=== PATIENT | male | born 1960 | race Caucasian/White ===

== ENCOUNTER 2023-12-28 12:11 | Observation (INO) ==
[2023-12-28] MEDS: DUONEB NEB STA (12:18)
--- NOTE | 2023-12-28 12:28 | ED.PDOC ---
General ED Provider: Dr. LEE VARGAS MD Chief Complaint: Shortness of Air Stated Complaint: Shortness of breath with a history of COPD Time Seen by Provider: 12/28/23 12:16 Mode of Arrival: Walk-In Information Source: Patient Exam Limitations: No limitations Primary Care Provider: From out of state - patient's PCP is in [place]. Nursing and Triage Documentation Reviewed and Agree: Yes Does Patient Take Opioids?: No Is Patient Opioid Naive?: No What is Opioid Naive?: *Opioid Naive implies the patient is not already taking opioids or not chronically receiving opioids on a daily basis. *PRN dosing is not "usually" associated with tolerance. *Patients are at higher risk of over-sedation and aspiration. Is Patient Opioid Tolerant?: No What is Opioid Tolerant?: *Opioid Tolerance implies less than the expected response to an opioid. *Acquired tolerance is defined by the patient taking 60mg of oral morphine daily (or equianalgesic dose of another opioid) for 1 week or more. *Often associated with chronic pain. *May take more than usual dose to achieve desired pain control. Respiratory Complaint Exam Respiratory Complaint/Exam Onset/Duration: 4 days Symptoms Are: Still present Timing: Intermittent Initial Severity: Moderate Current Severity: Moderate Location: Chest (Shortness of breath secondary to COPD exacerbation) Character: Reports Dry cough Aggravating: Reports None Alleviating: Reports None Associated Signs and Symptoms: Reports Dyspnea and Wheezing; Denies Fever, Chills, Chest pain, Pleuritic chest pain, Hemoptysis, Dizziness, Calf pain, Calf swelling, Edema, URI, Nasal congestion, Hoarseness, Sinus discomfort, Vomiting, Sore throat, Decreased oral intake, Increased thirst, Increased appetite or Increased urination Related History: Reports Similar episode (Patient has a history of COPD exacerbation) History of Healthcare-Acquired Pneumonia: No Related Surgical History: Reports None Pulmonary Embolism Risk Factors: None Cardiac Risk Factors: Reports Smoking Pseudomonas Risk Factors: Reports None Tuberculosis Risk Factors: Reports None Home Oxygen Use: No Current Antibiotic Use: No Respiratory Distress: Moderate Diminished Breath Sounds: Yes (Diminished breath sounds in the bibasilar lung shell.) Prolonged Respiration: Expiratory phase Sinus Tenderness: None Kussmaul Respirations: No Differential Diagnoses: Pneumonia and Other (COPD exacerbation) Review of Systems Review Of Systems Constitutional: Reports No symptoms Eyes: Reports No symptoms Ears, Nose, Mouth, Throat: Reports No symptoms Respiratory: Reports Cough and Shortness of Breath Cardiac: Reports No symptoms GI: Reports No symptoms : Reports No symptoms Musculoskeletal: Reports No symptoms Skin: Reports No symptoms Neurological: Reports No symptoms Endocrine: Reports No symptoms Hematologic/Lymphatic: Reports No symptoms All Other Systems: Reviewed and Negative Physical Exam Physical Exam Appearance: Reports Ill-appearing, No pain distress and Well-nourished Ill-appearing: Mild Pain Distress: None Eyes: Reports LEANNE, EOMI and Conjunctiva clear ENT: Reports Ears normal, Nose normal and Oropharynx normal Neck: Supple Respiratory: Reports Airway patent, Breath sounds diminished (Breath sounds diminished in the bibasilar lower lung shell.) and Wheezes (Wheezing heard throughout the entire lung shell anterior, posterior, and laterally.) Cardiovascular: Reports RRR, Pulses normal, No rub and No murmur GI/: Reports Soft, Nontender, No masses, Bowel sounds normal and No Organomegaly Musculoskeletal: Reports Normal strength, ROM intact, No edema and No calf tenderness Skin: Reports Warm, Dry and Normal color Neurological: Reports Sensation intact, Motor intact, Reflexes intact, Cranial nerves intact, Alert and Oriented Psychiatric: Reports Affect appropriate and Mood appropriate Interpretation EKG Interpretation EKG Interpretation By: ED Physician Time of EKG #1: 12:55 Rate: Normal Rhythm: Sinus Ectopy: None [place]: NL ST Segment: Normal Interpretation: EKG shows normal sinus rhythm with a rate of [address] elevations. Radiology Interpretation Radiology Interpretation By: ED Physician Radiology Results: No acute changes Exam Interpreted: CXR Xray Comments: Prominent right paratracheal lymph node. Course Course 12/28/23 12:28 12/28/23 12:28 Orders, Labs, Meds: Lab Review 12/28/23 12/28/23 12:28 12:42 WBC 10.11 RBC 5.18 Hgb 16.2 Hct 47.8 MCV 92.3 MCH 31.3 H MCHC 33.9 RDW Coeff of Siri 12.6 Plt Count 297 Immature Gran % (Auto) 0.3 Neut % (Auto) 58.1 Lymph % (Auto) 27.9 Kinney % (Auto) 6.9 Eos % (Auto) 6.0 Baso % (Auto) 0.8 Neut # (Auto) 5.9 Lymph # (Auto) 2.8 Kinney # (Auto) 0.7 Eos # (Auto) 0.6 Baso # (Auto) 0.1 Immature Gran # (Auto) 0.0 VBG pH 7.40 VBG pCO2 32 L VBG pO2 77 H VBG HCO3 19.8 L VBG O2 Saturation 95.2 H Sodium 136.3 Potassium 4.01 Chloride 108.4 H Carbon Dioxide 17.7 L Anion Gap 14.21 BUN 11.2 Creatinine 1.03 Estimated GFR (MDRD) 73.00 BUN/Creatinine Ratio 10.87 Glucose 147.0 H Lactic Acid 1.80 Calcium 8.87 Total Bilirubin 0.68 AST 44.5 ALT 29.1 Alkaline Phosphatase 74.2 Troponin I < 0.012 NT-Pro-B Natriuret Pep 46 Total Protein 7.22 Albumin 4.46 Globulin 2.76 Albumin/Globulin Ratio 1.61 Influ A Molecular Assay Negative by naat Influ B Molecular Assay Negative by naat SARS CoV-2 RNA Rapid MIGUEL Negative Orders Category Date Time Status EKG-(ED ONLY) Stat CARDIO 12/28/23 12:17 Completed EKG-(ED ONLY) Stat CARDIO 12/28/23 12:56 Stop Req NEBULIZER TREATMENT Stat CARDIO 12/28/23 12:18 Completed ED APPLY O2 .ONCE EMERGENCY 12/28/23 12:17 Active ED NETWORK SERVICES PROJECT MANAGER APPLIED .ONCE EMERGENCY 12/28/23 12:17 Active CBC W/ AUTO DIFF Stat LAB 12/28/23 12:28 Completed COMPREHENSIVE METABOLIC PANEL Stat LAB 12/28/23 12:28 Completed FLU A/B MOLECULAR Stat LAB 12/28/23 12:28 Completed LACTIC ACID Stat LAB 12/28/23 12:28 Completed NT-PROBNP(ED) Stat LAB 12/28/23 12:28 Completed SARS COV-2 RNA RAPID MIGUEL Stat LAB 12/28/23 12:28 Completed TROPONIN I Stat LAB 12/28/23 12:28 Completed VBG [VENOUS BLOOD GAS] Stat LAB 12/28/23 12:42 Completed Ipratropium/Albuterol Neb [Duoneb] Meds 12/28/23 12:16 Discontinued 3 ml NEB ONCE ONE Ipratropium/Albuterol Neb [Duoneb] Meds 12/28/23 12:16 Discontinued 3 ml NEB ONCE STA Methylprednisolone Sod Succ/Pf [Solu-Medrol 125 mg] Meds 12/28/23 12:16 Discontinued 125 mg IVP ONCE ONE CHEST, 1V AP ONLY Stat RADS 12/28/23 12:17 Taken Medications Discontinued Medications Generic Name Dose Route Start Last Admin Trade Name Sven PRN Reason Stop Dose Admin Albuterol/Ipratropium 3 ml 12/28/23 12:16 12/28/23 12:18 Ipratropium/Albuterol Vial.[facility] 12/28/23 12:17 3 ml ONCE STA Administration Albuterol/Ipratropium 3 ml 12/28/23 12:16 12/28/23 12:30 Ipratropium/Albuterol Vial.[facility] 12/28/23 12:17 3 ml ONCE ONE Administration Methylprednisolone Sodium Succinate 125 mg 12/28/23 12:16 12/28/23 12:34 Methylprednisolone Sod Succ/Pf 125 Mg/2 Ml Vial IVP 12/28/23 12:17 125 mg ONCE ONE Administration Vital Signs: Temp Pulse Resp BP Pulse Ox 12/28/23 12:14 98.7 F 91 20 142/89 H 94 L Discharge Plan Discharge Patient Disposition: ADMITTED INPATIENT Discharge Problem: Acute exacerbation of chronic obstructive pulmonary disease, Acute hypoxemic respiratory failure Did you review [place] CHIEF I DISPATCHER for ALL controlled substances?: Not Applicable ED Provider: LEE VARGAS Condition: Stable Physician Progress Note: Patient is a 63-year-old male that reported to the emergency department for shortness of breath. Patient states he has a history of COPD and has been in exacerbation before. Patient stated that he had the similar symptoms. Patient stated that he is from [place] and is here traveling. Patient stated that he is tried his albuterol inhaler with minimal relief. Patient stated that this is day 4 for the symptoms and he came to the emergency department because he does not want to get any worse. Patient also endorsed a dry cough for the past 4 days. Patient states that his PCP prescribed him an albuterol nebulized treatment and an albuterol inhaler for which she is tried both with minimal relief. Patient denies any fever or being around anybody that was sick. Patient denies any chest pain, nausea, vomiting, diarrhea, dizziness, syncope, loss consciousness, headache, sore throat, or any other acute symptoms not mentioned in the HPI. -Vital signs currently stable. Patient does have an O2 sat between 89 and 92% on room air. Will place patient on nasal cannula 2 L. -Will order a DuoNeb treatment x 2. -Will order IV methylprednisolone 125 mg. -Will order an EKG and a chest x-ray, and baseline labs. -Will order a VBG. -Patient's still has some wheezing diffusely in the lung shell after 2 DuoNeb treatments. However patient is moving air better in the lower lung shell after the 2 DuoNeb treatments. -CBC unremarkable. -CMP unremarkable. -EKG shows normal sinus rhythm with a rate of [address] elevations noted. -Spoke to the hospitalist Sung Hua at 1300 and discussed the patient's acute hypoxemic respiratory failure requiring 2 L nasal cannula to keep O2 sat above 94%. Also discussed with her the patient's COPD exacerbation diagnosis. She has agreed to admit the patient to the hospital for observation.
[2023-12-28] MEDS: DUONEB NEB ONE (12:30)
[2023-12-28] MEDS: SOLU-MEDROL 125 MG IVP ONE (12:34)
[2023-12-28 12:35] LABS: BASOPHILS # (AUTO) 0.1 K/uL (0-0.2); BASOPHILS % (AUTO) 0.8 % (0.0-3.0); EOSINOPHILS # (AUTO) 0.6 K/ul (0.0-0.7); HEMATOCRIT 47.8 % (42.0-52.0); HEMOGLOBIN 16.2 g/dl (14.0-18.0); IMMATURE GRANULOCYTE % (AUTO) 0.3 % (0.0-5.0); LYMPHOCYTES # (AUTO) 2.8 K/uL (0.60-3.4); LYMPHOCYTES % (AUTO) 27.9 (10.0-50.0); MEAN CORPUSCULAR HEMOGLOBIN 31.3 pg (27.0-31.0); MEAN CORPUSCULAR HGB CONC 33.9 (31.8-35.4); MEAN CORPUSCULAR VOLUME 92.3 fl (80.0-94.0); MONOCYTES # (AUTO) 0.7 K/uL (0.4-2.0); MONOCYTES % (AUTO) 6.9 (0-10); NEUTROPHILS # (AUTO) 5.9 K/ul (2.0-6.9); NEUTROPHILS % (AUTO) 58.1 % (42.2-75.2); PLATELET COUNT 297 10^3/uL (140-440); RDW COEFFICIENT OF VARIATION 12.6 % (11.6-14.8); RED BLOOD COUNT 5.18 10^6/ul (4.70-6.10); WHITE BLOOD COUNT 10.11 K/ul (4.2-10.2)
[2023-12-28 12:45] LABS: VBG HCO3 19.8 (22-26); VBG OXYGEN SATURATION 95.2 (60-80); VBG PH 7.4 (7.30-7.40)
[2023-12-28 12:48] LABS: ALANINE AMINOTRANSFERASE 29.1 U/L (0-50); ALBUMIN 4.46 g/dL (3.5-5.0); ALKALINE PHOSPHATASE 74.2 U/L (56-119); ASPARTATE AMINO TRANSFERASE 44.5 U/L (17-59); BILIRUBIN,TOTAL 0.68 mg/dL (0.2-1.3); BLOOD UREA NITROGEN 11.2 mg/dL (9-20); CALCIUM 8.87 mg/dL (8.4-10.2); CARBON DIOXIDE 17.7 mmol/L (22-30.0); CHLORIDE 108.4 mmol/L (98-107); CREATININE 1.03 mg/dL (0.60-1.10); POTASSIUM 4.01 mmol/L (3.5-5.1); SODIUM 136.3 mmol/L (134.5-145); TOTAL PROTEIN 7.22 g/dL (6.3-8.2)
[2023-12-28 12:53] LABS: MOLECULAR FLU A NEGATIVE BY NAAT (NEGATIVE); MOLECULAR FLU B NEGATIVE BY NAAT (NEGATIVE); SARS COV-2 RNA RAPID NAAT NEGATIVE (NEGATIVE)
[2023-12-28 13:00] LABS: TROPONIN I < 0.012 ng/ml (0.0000-0.120)
--- NOTE | 2023-12-28 13:09 | DI ---
EXAM: CHEST RADIOGRAPH (1 VIEW) TECHNIQUE: Frontal Chest Radiograph. HISTORY: Short of breath COMPARISON: None FINDINGS: Lines, Tubes, Devices: None Lungs and Pleura: The lungs are clear. There is a prominent right paratracheal lymph node or azygos node. Cardiomediastinum: Normal cardiomediastinal silhouette. No aortic calcifications. Bones/Soft Tissues: No acute osseous abnormality. No soft tissue abnormality. Upper Abdomen: Within normal limits. IMPRESSION: Prominent right paratracheal lymph node. Further characterization could be made with CT scan with co ntrast.
[2023-12-28] MEDS: ZITHROMAX 500 MG in SODIUM CHLORIDE 250 ML IV ONE (13:28)
--- NOTE | 2023-12-28 14:35 | PCM ---
Date of Service Date Seen by Provider: 12/28/23 Time Seen by Provider: 14:25 Admit Day/Time Admission Date: 12/28/23 Admission Time: 13:05 Reason for Admission Chief Complaint: ACUTE HYPOXIC RESPIRATORY FAILURE, COPD EXACERBATI Hospital Provider Hospital Provider: [facility], [facility] History of Present Illness History of Present Illness: 63 yo male presents to the ER with SOB. Patient is here from [place] visiting his daughter and has hx of COPD. Reports that he has been feeling more short of breath over the last week and has required his nebulizer machine and inhaler frequently since then. On arrival to the ER, O2 sat was dropping down into the upper 80s and 77% on VBG. 2 duonebs were administered in addition to steroids, rocephin, and azithromycin. Chest x-ray clear. Patient denies fever, chills, body aches, chest pain, N/V/D. Does report productive cough with clear sputum. Case Discussed With Case Discussed With: Patient's case was discussed with the ER Physicians, Dr. Kent. [facility] Medical History (Updated 12/28/23 @ 14:39 by [facility]) COPD (chronic obstructive pulmonary disease) J44.9 - Chronic obstructive pulmonary disease, unspecified (ICD-10) Allergies Allergies Allergy/AdvReac Type Severity Reaction Status Date / Time No Known Allergies Allergy Unverified 12/28/23 12:17 Current Medications Home Medications albuterol 90 mcg/actuation aerosol inhaler 90 mcg inhalation DAILY PRN wheezing 12/28/23 [History Confirmed 12/28/23 Last Taken Unknown] Home Albuterol Sulfate (Albuterol Sulfate 0.083% Vial.Neb) 2.5 mg NEB RTQ4H PRN PRN Reason: Wheezing Albuterol/Ipratropium (Ipratropium/Albuterol Vial.Neb) 3 ml NEB RTQ4H LIANA CEFTRIAXONE/D5W 1 GM PREMIX (Rocephin 1 Gm/50 Ml D5w) 1 gm in 50 mls @ 100 mls/hr IV DAILY LIANA Stop: 01/01/24 08:59 Azithromycin 500 mg/ Sodium (Chloride) 250 mls @ 250 mls/hr IV DAILY LIANA Stop: 01/01/24 08:59 Methylprednisolone Sodium Succinate (Methylprednisolone Sod Succ/Pf 40 Mg/Ml Vial) 40 mg IVP Q8HR LIANA Discontinued Medications Albuterol/Ipratropium (Ipratropium/Albuterol Vial.Neb) 3 ml NEB ONCE STA Stop: 12/28/23 12:17 Last Admin: 12/28/23 12:18 Dose: 3 ml Albuterol/Ipratropium (Ipratropium/Albuterol Vial.Neb) 3 ml NEB ONCE ONE Stop: 12/28/23 12:17 Last Admin: 12/28/23 12:30 Dose: 3 ml CEFTRIAXONE/D5W 1 GM PREMIX (Rocephin 1 Gm/50 Ml D5w) 1 gm in 50 mls @ 100 mls/hr IV DAILY LIANA Stop: 12/31/23 13:29 Azithromycin 500 mg/ Sodium (Chloride) 250 mls @ 250 mls/hr IV ONCE ONE Stop: 12/28/23 14:06 Last Admin: 12/28/23 13:28 Dose: 250 mls/hr CEFTRIAXONE/D5W 1 GM PREMIX (Rocephin 1 Gm/50 Ml D5w) 1 gm in 50 mls @ 100 mls/hr IV ONCE ONE Stop: 12/28/23 14:29 Methylprednisolone Sodium Succinate (Methylprednisolone Sod Succ/Pf 125 Mg/2 Ml Vial) 125 mg IVP ONCE ONE Stop: 12/28/23 12:17 Last Admin: 12/28/23 12:34 Dose: 125 mg Opioid Naive vs. Tolerant Does Patient Take Opioids?: No Is Patient Opioid Naive?: Yes What is Opioid Naive?: *Opioid Naive implies the patient is not already taking opioids or not chronically receiving opioids on a daily basis. *PRN dosing is not "usually" associated with tolerance. *Patients are at higher risk of over-sedation and aspiration. Is Patient Opioid Tolerant?: No What is Opioid Tolerant?: *Opioid Tolerance implies less than the expected response to an opioid. *Acquired tolerance is defined by the patient taking 60mg of oral morphine daily (or equianalgesic dose of another opioid) for 1 week or more. *Often associated with chronic pain. *May take more than usual dose to achieve desired pain control. Review of Systems Constitutional: Reports Fatigue Head: Reports Normocephalic Eyes: Reports No symptoms Ears: Reports No symptoms Nose: Reports No symptoms Mouth: Reports No symptoms Throat: Reports No symptoms Cardiovascular: Reports No symptoms Respiratory: Reports Cough (clear sputum) and Shortness of air Gastrointestinal: Reports No symptoms Genitourinary: Reports No Symptoms Musculoskeletal: Reports No symptoms Endocrine: Reports No symptoms Hematology: Reports No symptoms Immunology: Reports No symptoms Neurological: Reports No symptoms Psychiatric: Reports No symptoms Physical examination Most Recent Vital Signs: Most Recent Vital Signs Temperature 98.7 F 12/28/23 12:14 Temperature Source Temporal Artery Scan 12/28/23 12:14 Pulse Rate 91 12/28/23 12:14 Respiratory Rate 20 12/28/23 12:14 Blood Pressure 142/89 H 12/28/23 12:14 O2 Sat by Pulse Oximetry 94 L 12/28/23 12:14 Oxygen Flow Rate 2 12/28/23 13:25 Height 6 ft 2 in 12/28/23 12:14 Weight 209 lb 12/28/23 12:14 Appearance: Positive No Apparent Distress and Alert and Oriented x3 Skin: Positive Warm and Good Turgor HEENT: Positive Normocephalic and PERRLA Neck: Positive Supple and Midline Trachea Chest/Lungs: Positive Symmetrical With Equal Breath Sounds, Wheezes (insp and exp, throughout lung shell) and Other (diminished) Heart: Positive RRR and Pulses Normal GI/: Positive Soft, Nontender, Bowel Sounds Normal and No Distention Musculoskeletal: Positive Not Examined Neurological: Positive Sensation Intact, Motor intact, Alert, Oriented and Muscle Strength 5/5 in Upper and Lower Extremities Bilaterally Labs This Visit Labs This Visit: Labs This Visit 12/28/23 12/28/23 12:28 12:42 WBC 10.11 RBC 5.18 Hgb 16.2 Hct 47.8 MCV 92.3 MCH 31.3 H MCHC 33.9 RDW Coeff of Siri 12.6 Plt Count 297 Immature Gran % (Auto) 0.3 Neut % (Auto) 58.1 Lymph % (Auto) 27.9 Lucas % (Auto) 6.9 Eos % (Auto) 6.0 Baso % (Auto) 0.8 Neut # (Auto) 5.9 Lymph # (Auto) 2.8 Lucas # (Auto) 0.7 Eos # (Auto) 0.6 Baso # (Auto) 0.1 Immature Gran # (Auto) 0.0 VBG pH 7.40 VBG pCO2 32 L VBG pO2 77 H VBG HCO3 19.8 L VBG O2 Saturation 95.2 H Sodium 136.3 Potassium 4.01 Chloride 108.4 H Carbon Dioxide 17.7 L Anion Gap 14.21 BUN 11.2 Creatinine 1.03 Estimated GFR (MDRD) 73.00 BUN/Creatinine Ratio 10.87 Glucose 147.0 H Lactic Acid 1.80 Calcium 8.87 Total Bilirubin 0.68 AST 44.5 ALT 29.1 Alkaline Phosphatase 74.2 Troponin I < 0.012 NT-Pro-B Natriuret Pep 46 Total Protein 7.22 Albumin 4.46 Globulin 2.76 Albumin/Globulin Ratio 1.61 Influ A Molecular Assay Negative by naat Influ B Molecular Assay Negative by naat SARS CoV-2 RNA Rapid MIGUEL Negative Imaging Imaging: EXAM: CHEST RADIOGRAPH (1 VIEW) FINDINGS: Lines, Tubes, Devices: None Lungs and Pleura: The lungs are clear. There is a prominent right paratracheal lymph node or azygos node. Cardiomediastinum: Normal cardiomediastinal silhouette. No aortic calcifications. Bones/Soft Tissues: No acute osseous abnormality. No soft tissue abnormality. Upper Abdomen: Within normal limits. IMPRESSION: Prominent right paratracheal lymph node. Further characterization could be made with CT scan with contrast. Review Statement Review Statement: I have independently reviewed and interpreted the labs/EKGs/imaging that were ordered by the ER provider. I have reviewed all outside records that are available currently in our EMR including imaging/notes/labs from previous visits. Plan Plan: 1. Acute Hypoxic Respiratory Failure in setting of COPD Exacerbation - wean oxygen as tolerated, steroids, nebs Q4H and prn 2. COPD Exacerbation - azith and rocephin, steroids, nebs, rx for new inhaler and neb treatments needed upon dc 3. Right paratracheal lymph node - incidental findings, could be due to COPD exacerbation, will CT if needed clinically otherwise follow up outpatient with PCP to monitor DVT Prophylaxis: Ambulation Time Spent: Greater than 80 minutes spent with patient, 50% of the time spent with this patient was devoted to counseling and coordination of care. [facility] Plannin minutes spent discussing advance care planning. Smoking Cessation: 3-10 minutes spent discussing smoking cessation. Disposition: Admit to: Med/Surg Observation Discussed Plan of Care with Dr. Josefa Ibarra. Medications Medication Orders: Medications Ordered Category Date Time Status Albuterol Sulfate 0.083% Neb [Albuterol 0.083% Neb] Meds 12/28/23 13:45 Active 2.5 mg NEB RTQ4H PRN Azithromycin Inj [Zithromax] 500 mg Meds 12/29/23 09:00 Active 0.9 % Sodium Chloride [Sodium Chloride] 250 ml IV DAILY Ceftriaxone/D5w 1 gm Premix [Rocephin 1 gm/50 ml D5w] Meds 12/29/23 09:00 Active 1 gm in 50 ml IV DAILY Ipratropium/Albuterol Neb [Duoneb] Meds 12/28/23 16:00 Active 3 ml NEB RTQ4H Methylprednisolone Sod Succ/Pf [Solu-Medrol 40 mg] Meds 12/28/23 21:00 Active 40 mg IVP Q8HR
[2023-12-28 15:38] VITALS: BMI 26.7
[2023-12-28] MEDS: ROCEPHIN 1 GM/50 ML D5W 1 GM/50 ML BAG IV ONE (16:12)
[2023-12-28] MEDS: DUONEB NEB SCH (16:32)
[2023-12-28] MEDS: SOLU-MEDROL 40 MG IVP SCH (20:28)
[2023-12-28] MEDS: ROCEPHIN 1 GM/50 ML D5W 1 GM/50 ML BAG IV SCH (21:34)
[2023-12-29 05:21] LABS: BASOPHILS % (AUTO) 0.2 % (0.0-3.0); EOSINOPHILS % (AUTO) 0.1 % (0.0-7.0); HEMATOCRIT 48.8 % (42.0-52.0); HEMOGLOBIN 16.3 g/dl (14.0-18.0); IMMATURE GRANULOCYTE # (AUTO) 0.1 (0.0-1.0); IMMATURE GRANULOCYTE % (AUTO) 0.7 % (0.0-5.0); LYMPHOCYTES % (AUTO) 7.7 (10.0-50.0); MEAN CORPUSCULAR HEMOGLOBIN 30.9 pg (27.0-31.0); MEAN CORPUSCULAR HGB CONC 33.4 (31.8-35.4); MEAN CORPUSCULAR VOLUME 92.4 fl (80.0-94.0); MONOCYTES # (AUTO) 0.3 K/uL (0.4-2.0); MONOCYTES % (AUTO) 2.4 (0-10); NEUTROPHILS # (AUTO) 11.5 K/ul (2.0-6.9); NEUTROPHILS % (AUTO) 88.9 % (42.2-75.2); PLATELET COUNT 293 10^3/uL (140-440); RDW COEFFICIENT OF VARIATION 12.6 % (11.6-14.8); RED BLOOD COUNT 5.28 10^6/ul (4.70-6.10); WHITE BLOOD COUNT 12.92 K/ul (4.2-10.2)
[2023-12-29 05:31] LABS: ALANINE AMINOTRANSFERASE 25.9 U/L (0-50); ALBUMIN 4.26 g/dL (3.5-5.0); ALKALINE PHOSPHATASE 80.7 U/L (56-119); ASPARTATE AMINO TRANSFERASE 34.7 U/L (17-59); BILIRUBIN,TOTAL 0.33 mg/dL (0.2-1.3); BLOOD UREA NITROGEN 14.2 mg/dL (9-20); CALCIUM 9.03 mg/dL (8.4-10.2); CARBON DIOXIDE 23.3 mmol/L (22-30.0); CHLORIDE 109.1 mmol/L (98-107); CREATININE 0.93 mg/dL (0.60-1.10); GLUCOSE 160.3 mg/dL (74-106); POTASSIUM 4.7 mmol/L (3.5-5.1); SODIUM 138.2 mmol/L (134.5-145); TOTAL PROTEIN 7.01 g/dL (6.3-8.2)
[2023-12-29] MEDS: ALBUTEROL 0.083% NEB NEB PRN (08:02)
[2023-12-29] MEDS: ROCEPHIN 1 GM/50 ML D5W 1 GM/50 ML BAG IV SCH (09:00)
--- NOTE | 2023-12-29 09:43 | PCM.PROG ---
Date/Time Seen Date Seen by Provider: 12/29/23 Time Seen by Provider: 09:15 Provider Provider: CHI BROWN, [facility] Chief Complaint Chief Complaint: ACUTE HYPOXIC RESPIRATORY FAILURE, COPD EXACERBATI Subjective Subjective: States feels he is wheezing worse today. Having difficulties coughing up sputum. Requiring 4L of oxygen now. Sat staying around 93%. Objective Appearance: Positive No Apparent Distress, Alert and Oriented x3 and Ill- Appearing Chest/Lungs: Positive Symmetrical With Equal Breath Sounds and Wheezes (insp and exp throughout lung shell) Heart: Positive RRR and Pulses Normal GI/: Positive Soft, Nontender, Bowel Sounds Normal and No Distention Musculoskeletal: Positive Not Examined Neurological: Positive Sensation Intact, Motor intact, Alert, Oriented and Muscle Strength 5/5 in Upper and Lower Extremities Bilaterally Vital Signs Vital Signs: Vital Signs: Last 24 Hours 12/28/23 12:14 12/28/23 13:25 12/28/23 14:25 Temperature 98.7 F 98.2 F Temperature Source Temporal Artery Scan Oral Pulse Rate 91 78 Respiratory Rate 20 22 H Blood Pressure 142/89 H Blood Pressure Mean Blood Pressure Left Arm 153/98 Blood Pressure Location Blood Pressure Position Supine O2 Sat by Pulse Oximetry 94 L 95 Oxygen Delivery Method Nasal Cannula Oxygen Flow Rate 2 2 Height 6 ft 2 in 6 ft 2 in Weight 209 lb 208 lb 9.6 oz Telemetry Type Telemetry Monitoring Irregular Telemetry Rate (Approximate) Telemetry Heart Rate Telemetry SPO2 EKG DE Interval EKG QRS Interval Telemetry Strip Reading 12/28/23 14:25 12/28/23 14:48 12/28/23 15:00 Temperature Temperature Source Pulse Rate Respiratory Rate Blood Pressure Blood Pressure Mean Blood Pressure Left Arm Blood Pressure Location Blood Pressure Position O2 Sat by Pulse Oximetry Oxygen Delivery Method Nasal Cannula Nasal Cannula Oxygen Flow Rate 2 Height Weight Telemetry Type Remote Telemetry Telemetry Monitoring Started Irregular Telemetry Rate (Approximate) Telemetry Heart Rate 97 Telemetry SPO2 92 L EKG DE Interval 0.18 EKG QRS Interval 0.08 Telemetry Strip Reading NSR 12/28/23 16:00 12/28/23 17:00 12/28/23 17:52 Temperature Temperature Source Pulse Rate Respiratory Rate Blood Pressure Blood Pressure Mean Blood Pressure Left Arm Blood Pressure Location Blood Pressure Position O2 Sat by Pulse Oximetry Oxygen Delivery Method Nasal Cannula Nasal Cannula Nasal Cannula Oxygen Flow Rate Height Weight Telemetry Type Telemetry Monitoring Irregular Telemetry Rate (Approximate) Telemetry Heart Rate Telemetry SPO2 EKG DE Interval EKG QRS Interval Telemetry Strip Reading 12/28/23 17:53 12/28/23 19:00 12/28/23 19:00 Temperature 98.1 F Temperature Source Temporal Artery Scan Pulse Rate 94 Respiratory Rate 19 Blood Pressure 144/97 H Blood Pressure Mean 112 Blood Pressure Left Arm Blood Pressure Location Right Arm Blood Pressure Position Supine O2 Sat by Pulse Oximetry 91 L Oxygen Delivery Method Nasal Cannula Nasal Cannula Oxygen Flow Rate 2 Height Weight Telemetry Type Remote Telemetry Telemetry Monitoring Continues Irregular Telemetry Rate (Approximate) Telemetry Heart Rate 85 Telemetry SPO2 92 L EKG DE Interval 0.16 EKG QRS Interval 0.08 Telemetry Strip Reading NSR 12/28/23 19:39 12/28/23 19:49 12/28/23 21:00 Temperature Temperature Source Pulse Rate Respiratory Rate Blood Pressure Blood Pressure Mean Blood Pressure Left Arm Blood Pressure Location Blood Pressure Position O2 Sat by Pulse Oximetry Oxygen Delivery Method Nasal Cannula Nasal Cannula Nasal Cannula Oxygen Flow Rate 2 Height Weight Telemetry Type Telemetry Monitoring Irregular Telemetry Rate (Approximate) Telemetry Heart Rate Telemetry SPO2 EKG DE Interval EKG QRS Interval Telemetry Strip Reading 12/28/23 21:25 12/28/23 21:40 12/28/23 22:15 Temperature 97.3 F L Temperature Source Temporal Artery Scan Pulse Rate 83 Respiratory Rate 20 Blood Pressure 144/97 H Blood Pressure Mean 112 Blood Pressure Left Arm Blood Pressure Location Left Arm Blood Pressure Position Supine O2 Sat by Pulse Oximetry 94 L 93 L Oxygen Delivery Method Nasal Cannula Nasal Cannula Nasal Cannula Oxygen Flow Rate 2 2 Height Weight Telemetry Type Telemetry Monitoring Irregular Telemetry Rate (Approximate) Telemetry Heart Rate Telemetry SPO2 EKG DE Interval EKG QRS Interval Telemetry Strip Reading 12/28/23 23:00 12/29/23 00:00 12/29/23 01:00 Temperature Temperature Source Pulse Rate Respiratory Rate Blood Pressure Blood Pressure Mean Blood Pressure Left Arm Blood Pressure Location Blood Pressure Position O2 Sat by Pulse Oximetry Oxygen Delivery Method Nasal Cannula Nasal Cannula Nasal Cannula Oxygen Flow Rate Height Weight Telemetry Type Telemetry Monitoring Irregular Telemetry Rate (Approximate) Telemetry Heart Rate Telemetry SPO2 EKG DE Interval EKG QRS Interval Telemetry Strip Reading 12/29/23 01:00 12/29/23 02:00 12/29/23 03:00 Temperature Temperature Source Pulse Rate Respiratory Rate Blood Pressure Blood Pressure Mean Blood Pressure Left Arm Blood Pressure Location Blood Pressure Position O2 Sat by Pulse Oximetry Oxygen Delivery Method Nasal Cannula Nasal Cannula Oxygen Flow Rate Height Weight Telemetry Type Remote Telemetry Telemetry Monitoring Continues Irregular Telemetry Rate (Approximate) 65 Telemetry Heart Rate Telemetry SPO2 88 L EKG DE Interval 0.16 EKG QRS Interval 0.06 Telemetry Strip Reading NSR 12/29/23 04:00 12/29/23 05:00 12/29/23 05:20 Temperature Temperature Source Pulse Rate Respiratory Rate Blood Pressure Blood Pressure Mean Blood Pressure Left Arm Blood Pressure Location Blood Pressure Position O2 Sat by Pulse Oximetry 96 Oxygen Delivery Method Nasal Cannula Nasal Cannula Nasal Cannula Oxygen Flow Rate 4 Height Weight Telemetry Type Telemetry Monitoring Irregular Telemetry Rate (Approximate) Telemetry Heart Rate Telemetry SPO2 EKG DE Interval EKG QRS Interval Telemetry Strip Reading 12/29/23 05:38 12/29/23 06:00 12/29/23 07:00 Temperature 98.3 F Temperature Source Temporal Artery Scan Pulse Rate 74 Respiratory Rate 20 Blood Pressure 140/89 Blood Pressure Mean 106 Blood Pressure Left Arm Blood Pressure Location Left Arm Blood Pressure Position Supine O2 Sat by Pulse Oximetry 96 Oxygen Delivery Method Nasal Cannula Nasal Cannula Oxygen Flow Rate 4 Height Weight Telemetry Type Remote Telemetry Telemetry Monitoring Continues Irregular Telemetry Rate (Approximate) Telemetry Heart Rate 78 Telemetry SPO2 92 L EKG DE Interval 0.20 EKG QRS Interval 0.08 Telemetry Strip Reading SR 12/29/23 07:00 12/29/23 08:00 12/29/23 08:00 Temperature Temperature Source Pulse Rate Respiratory Rate Blood Pressure Blood Pressure Mean Blood Pressure Left Arm Blood Pressure Location Blood Pressure Position O2 Sat by Pulse Oximetry Oxygen Delivery Method Nasal Cannula Nasal Cannula Nasal Cannula Oxygen Flow Rate 2 Height Weight Telemetry Type Telemetry Monitoring Irregular Telemetry Rate (Approximate) Telemetry Heart Rate Telemetry SPO2 EKG DE Interval EKG QRS Interval Telemetry Strip Reading 12/29/23 08:34 Temperature Temperature Source Pulse Rate Respiratory Rate Blood Pressure Blood Pressure Mean Blood Pressure Left Arm Blood Pressure Location Blood Pressure Position O2 Sat by Pulse Oximetry Oxygen Delivery Method Nasal Cannula Oxygen Flow Rate Height Weight Telemetry Type Telemetry Monitoring Irregular Telemetry Rate (Approximate) Telemetry Heart Rate Telemetry SPO2 EKG DE Interval EKG QRS Interval Telemetry Strip Reading Lab Results Lab Results: Lab Results: Last 24 Hours 12/29/23 12/28/23 12/28/23 05:14 12:42 12:28 WBC 12.92 H 10.11 RBC 5.28 5.18 Hgb 16.3 16.2 Hct 48.8 47.8 MCV 92.4 92.3 MCH 30.9 31.3 H MCHC 33.4 33.9 RDW Coeff of Siri 12.6 12.6 Plt Count 293 297 Immature Gran % (Auto) 0.7 0.3 Neut % (Auto) 88.9 H 58.1 Lymph % (Auto) 7.7 L 27.9 Hall % (Auto) 2.4 6.9 Eos % (Auto) 0.1 6.0 Baso % (Auto) 0.2 0.8 Neut # (Auto) 11.5 H 5.9 Lymph # (Auto) 1.0 2.8 Hall # (Auto) 0.3 L 0.7 Eos # (Auto) 0.0 0.6 Baso # (Auto) 0.0 0.1 Immature Gran # (Auto) 0.1 0.0 VBG pH 7.40 VBG pCO2 32 L VBG pO2 77 H VBG HCO3 19.8 L VBG O2 Saturation 95.2 H Sodium 138.2 136.3 Potassium 4.70 4.01 Chloride 109.1 H 108.4 H Carbon Dioxide 23.3 17.7 L Anion Gap 10.50 14.21 BUN 14.2 11.2 Creatinine 0.93 1.03 Estimated GFR (MDRD) 83.00 73.00 BUN/Creatinine Ratio 15.26 10.87 Glucose 160.3 H 147.0 H Lactic Acid 1.80 Calcium 9.03 8.87 Total Bilirubin 0.33 0.68 AST 34.7 44.5 ALT 25.9 29.1 Alkaline Phosphatase 80.7 74.2 Troponin I < 0.012 NT-Pro-B Natriuret Pep 46 Total Protein 7.01 7.22 Albumin 4.26 4.46 Globulin 2.75 2.76 Albumin/Globulin Ratio 1.54 1.61 Influ A Molecular Assay Negative by naat Influ B Molecular Assay Negative by naat SARS CoV-2 RNA Rapid MIGUEL Negative Additional Comments Additional Comments: I have independently reviewed and interpreted the labs/EKGs/imaging ordered during this hospital stay. I have reviewed outside records that are available in our EMR that pertain to medical stay including imaging/notes/labs from previous visits. Active Medications Active Medications: Medications Generic Name Dose Route Start Last Admin Trade Name Freq PRN Reason Stop Dose Admin Albuterol Sulfate 2.5 mg 12/28/23 13:45 12/29/23 08:02 Albuterol Sulfate 0.083% Vial.Neb NEB 2.5 mg RTQ4H PRN Administration Wheezing Albuterol/Ipratropium 3 ml 12/28/23 16:00 12/29/23 05:21 Ipratropium/Albuterol Vial.Neb NEB 3 ml RTQ4H LIANA Administration CEFTRIAXONE/D5W 1 GM PREMIX 1 gm in 50 mls @ 100 mls/hr 12/29/23 09:00 Rocephin 1 Gm/50 Ml D5w IV 01/01/24 08:59 DAILY LIANA Azithromycin 500 mg/ Sodium 250 mls @ 250 mls/hr 12/29/23 09:00 Chloride IV 01/01/24 08:59 DAILY LIANA Methylprednisolone Sodium Succinate 40 mg 12/28/23 21:00 12/29/23 04:40 Methylprednisolone Sod Succ/Pf 40 Mg/Ml Vial IVP 40 mg Q8HR LIANA Administration Sodium Chloride 1 syr 12/28/23 21:00 12/29/23 04:41 0.9% Sodium Chloride 10 Ml Disp.Syrin IVF 1 syr Q8HR LIANA Administration Sodium Chloride 1 syr 12/28/23 17:12 0.9% Sodium Chloride 10 Ml Disp.Syrin IVF PRN PRN Maintain IV Patency Plan Plan: 1. Acute Hypoxic Respiratory Failure in setting of COPD Exacerbation - Worsening, up to 4L now, wean oxygen as tolerated, steroids, nebs Q4H and prn, checking chest CTA to r/o PE or other etiologies 2. COPD Exacerbation - azith and rocephin, steroids, nebs, rx for new inhaler and neb treatments needed upon dc 3. Right paratracheal lymph node - incidental findings, could be due to COPD exacerbation, CT chest today DVT Prophylaxis: Ambulation Review Statement Review Statement: I have personally discussed and reviewed the patient's visit/currently labs/imaging/decision making with Dr. Ibarra, my supervising attending. Greater that 50 minutes spent with patient, 50% of the time spent with this patient was devoted to counseling and coordination of care.
[2023-12-29] MEDS: ZITHROMAX 500 MG in SODIUM CHLORIDE 250 ML IV SCH (09:59)
--- NOTE | 2023-12-29 10:33 | CT ---
EXAM: CTA CHEST FOR PE HISTORY: Shortness of breath COMPARISON: Chest x-ray yesterday TECHNIQUE: CTA of the chest was performed from the lung apices to the upper abdomen after 100 ml of Omnipaque IV contrast was administered using PE protocol. 3-D imaging was also provided. FINDINGS: There is no filling defect in the pulmonary arteries to the level of the subsegmental pulm onary arteries. The heart is normal without signs of ventricular strain. The aorta demonstrates ath erosclerotic disease. Thyroid is unremarkable. The heart demonstrates normal appearance with no per icardial fluid. There are calcified mediastinal and hilar lymph nodes. There is no pneumothorax or effusion. Calcified granuloma in the right middle lobe is present. Ther e is no consolidation, nodule or mass. The airways are patent. Limited views of the soft tissues in the upper abdomen are unremarkable. There is degenerative disea se throughout the spine. IMPRESSION: 1. No pulmonary embolism. 2. Sequela of old granulomatous disease. All CT scans are performed using dose optimization techniques as appropriate to the performed exam an d include at least one of the following: Automated exposure control, adjustment of the mA and/or kV according t o size, and the use of iterative reconstruction technique.
[2023-12-29] MEDS: ARTIFICIAL TEARS OPTH SOL EACHEYE PRN (10:57)
[2023-12-29] MEDS: SPIRIVA IH SCH (12:33)
[2023-12-29] MEDS: PULMICORT 1 MG/2 ML NEB SCH (13:42)
[2023-12-30 05:33] LABS: ALANINE AMINOTRANSFERASE 27.5 U/L (0-50); ALBUMIN 4.05 g/dL (3.5-5.0); ALKALINE PHOSPHATASE 68.5 U/L (56-119); ASPARTATE AMINO TRANSFERASE 35.9 U/L (17-59); BILIRUBIN,TOTAL 0.32 mg/dL (0.2-1.3); CALCIUM 9.07 mg/dL (8.4-10.2); CARBON DIOXIDE 22.7 mmol/L (22-30.0); CHLORIDE 108.7 mmol/L (98-107); CREATININE 1.01 mg/dL (0.60-1.10); GLUCOSE 137.8 mg/dL (74-106); POTASSIUM 4.88 mmol/L (3.5-5.1); SODIUM 137.9 mmol/L (134.5-145); TOTAL PROTEIN 6.69 g/dL (6.3-8.2)
[2023-12-30 05:34] LABS: EOSINOPHILS % (AUTO) 0.1 % (0.0-7.0); HEMATOCRIT 48.1 % (42.0-52.0); HEMOGLOBIN 15.6 g/dl (14.0-18.0); IMMATURE GRANULOCYTE # (AUTO) 0.1 (0.0-1.0); IMMATURE GRANULOCYTE % (AUTO) 0.6 % (0.0-5.0); LYMPHOCYTES # (AUTO) 1.3 K/uL (0.60-3.4); LYMPHOCYTES % (AUTO) 5.7 (10.0-50.0); MEAN CORPUSCULAR HEMOGLOBIN 31.6 pg (27.0-31.0); MEAN CORPUSCULAR HGB CONC 32.4 (31.8-35.4); MONOCYTES # (AUTO) 0.8 K/uL (0.4-2.0); MONOCYTES % (AUTO) 3.5 (0-10); NEUTROPHILS # (AUTO) 19.8 K/ul (2.0-6.9); NEUTROPHILS % (AUTO) 90.1 % (42.2-75.2); PLATELET COUNT 300 10^3/uL (140-440); RDW COEFFICIENT OF VARIATION 13.1 % (11.6-14.8); RED BLOOD COUNT 4.94 10^6/ul (4.70-6.10)
[2023-12-30 05:38] LABS: WHITE BLOOD COUNT 22.05 K/ul (4.2-10.2)
[2023-12-30 05:39] LABS: MEAN CORPUSCULAR VOLUME 97.4 fl (80.0-94.0)
[2023-12-30 09:59] VITALS: BP 140/87; PULSE 94; RESP 18; TEMP 98.2
--- NOTE | 2023-12-30 10:13 | DCSUM ---
Admission Date Admission Date: 12/28/23 Discharge Date Discharge Date: 12/30/23 Admission Diagnosis Admission Diagnosis: 1. Acute Hypoxic Respiratory Failure in setting of COPD Exacerbation 2. COPD Exacerbation 3. Right paratracheal lymph node Discharge Diagnosis Discharge Diagnosis: 1. Acute Hypoxic Respiratory Failure in setting of COPD Exacerbation - Resolved 2. COPD Exacerbation - Improving 3. Right paratracheal lymph node - not seen on CTA, PCP to follow-up Hospital Provider Hospital Provider[facility]OWN[facility] Summary of History and Physical Summary of History and Physical: 63 yo male presents to the ER with SOB. Patient is here from [place] visiting his daughter and has hx of COPD. Reports that he has been feeling more short of breath over the last week and has required his nebulizer machine and inhaler frequently since then. On arrival to the ER, O2 sat was dropping down into the upper 80s and 77% on VBG. 2 duonebs were administered in addition to steroids, rocephin, and azithromycin. Chest x-ray clear. Patient denies fever, chills, body aches, chest pain, N/V/D. Does report productive cough with clear sputum. Hospital Course Subjective: Initially, patient was requiring 2L of oxygen. By AM yesterday, patient was requiring 4L and only maintaining O2 sat of 93%. CTA chest completed to r/o PE or other etiologies, which was negative for acute findings. Adjusted nebulizer treatment regimen and patient showed great improvements. He was able to be weaned off of oxygen completely this am. 3 step oximetry completed and patient did not qualify for need for home oxygen. He was given azithromycin and rocephin, steroids, and started on spiriva as well. Patient reports feeling much better today and feels he is moving air much better. Marked leukocytosis on CBC this am. Likely due to steroid use. No fever or active signs of infection noted. Discussed to follow-up with PCP when he returns home. Appearance: Pleasant, No Apparent Distress and Alert HEENT: MMM, Supple and No JVD CVS: No Murmur Abdomen: Soft, Non-Tender and No Distention Respiratory: Other (insp and expiratory wheezing throughout lung shell, good air movement) Extremities: No Edema Vital Signs: Most Recent Vital Signs Temperature 98.2 F 12/30/23 09:59 Temperature Source Temporal Artery Scan 12/30/23 09:59 Temperature Source Temporal Artery Scan 12/28/23 12:14 Pulse Rate 94 12/30/23 09:59 Respiratory Rate 18 12/30/23 09:59 Blood Pressure 140/87 12/30/23 09:59 Blood Pressure Mean 104 12/30/23 09:59 Blood Pressure Left Arm 153/98 12/28/23 14:25 Blood Pressure Location Left Arm 12/30/23 09:59 Blood Pressure Position Sitting 12/30/23 09:59 O2 Sat by Pulse Oximetry 95 12/30/23 10:00 Oxygen Delivery Method Room Air 12/30/23 10:00 Oxygen Flow Rate 2 12/30/23 07:10 Height 6 ft 2 in 12/28/23 14:25 Weight 208 lb 9.6 oz 12/28/23 14:25 Telemetry Type Remote Telemetry 12/30/23 07:00 Telemetry Monitoring Continues 12/30/23 07:00 Irregular Telemetry Rate (Approximate) 65 12/29/23 01:00 Telemetry Heart Rate 85 12/30/23 07:00 Telemetry SPO2 91 L 12/30/23 07:00 EKG TX Interval 0.20 12/30/23 07:00 EKG QRS Interval 0.08 12/30/23 07:00 Telemetry Strip Reading SR 12/30/23 07:00 Imaging: EXAM: CHEST RADIOGRAPH (1 VIEW) FINDINGS: Lines, Tubes, Devices: None Lungs and Pleura: The lungs are clear. There is a prominent right paratracheal lymph node or azygos node. Cardiomediastinum: Normal cardiomediastinal silhouette. No aortic calcifications. Bones/Soft Tissues: No acute osseous abnormality. No soft tissue abnormality. Upper Abdomen: Within normal limits. IMPRESSION: Prominent right paratracheal lymph node. Further characterization could be made with CT scan with contrast. EXAM: CTA CHEST FOR PE FINDINGS: There is no filling defect in the pulmonary arteries to the level of the subsegmental pulmonary arteries. The heart is normal without signs of ventricular strain. The aorta demonstrates atherosclerotic disease. Thyroid is unremarkable. The heart demonstrates normal appearance with no pericardial fluid. There are calcified mediastinal and hilar lymph nodes. There is no pneumothorax or effusion. Calcified granuloma in the right middle lobe is present. There is no consolidation, nodule or mass. The airways are patent. Limited views of the soft tissues in the upper abdomen are unremarkable. There is degenerative disease throughout the spine. IMPRESSION: 1. No pulmonary embolism. 2. Sequela of old granulomatous disease. Lab Results Last 24 Hours: 12/30/23 05:14 WBC 22.05 H D RBC 4.94 Hgb 15.6 Hct 48.1 MCV 97.4 H D MCH 31.6 H MCHC 32.4 RDW Coeff of Siri 13.1 Plt Count 300 Immature Gran % (Auto) 0.6 Neut % (Auto) 90.1 H Lymph % (Auto) 5.7 L [place] % (Auto) 3.5 Eos % (Auto) 0.1 Baso % (Auto) 0.0 Neut # (Auto) 19.8 H Lymph # (Auto) 1.3 [place] # (Auto) 0.8 Eos # (Auto) 0.0 Baso # (Auto) 0.0 Immature Gran # (Auto) 0.1 Sodium 137.9 Potassium 4.88 Chloride 108.7 H Carbon Dioxide 22.7 Anion Gap 11.38 BUN 18.0 Creatinine 1.01 Estimated GFR (MDRD) 75.00 BUN/Creatinine Ratio 17.82 Glucose 137.8 H Calcium 9.07 Total Bilirubin 0.32 AST 35.9 ALT 27.5 Alkaline Phosphatase 68.5 Total Protein 6.69 Albumin 4.05 Globulin 2.64 Albumin/Globulin Ratio 1.53 Discharge Instructions Discharge Planning: Discharge Planning > 40 minutes If patient is discharged with left ventricular systolic dysfunction: NA Discharged with a beta savanah? [] If no, why not? [] Discharged with an aretha/arb? [] If no, why not? [] Diagnosis: Acute Hypoxic Respiratory Failure, COPD Exacerbation Diet: Regular Activity: as tolerated Follow-up with PCP next week Medications: Albuterol inhaler 2 puffs every 4-6 hours as needed for shortness of breath Duoneb nebulizer treatment every 4 hours as needed for shortness of breath Pulmicort nebulizer use twice a day Spiriva 1 cap daily Keflex 500 mg twice a day x 4 days, start tomorrow Azithromycin 500 mg daily x 2 days, start tomorrow Prednisone 20 mg daily x 2 days, start tomorrow Discharge Medications: Medications at Discharge (Home Meds & RX) albuterol 90 mcg/actuation aerosol inhaler 90 mcg inhalation DAILY PRN wheezing 12/28/23 Discharge Plan Discharge Discharge Orders: Discharge Patient (ONCE); Ordered 12/30/23 Ordered By: GINO SAVAGE Activity Restrictions/Additional Instructions: Diagnosis: COPD Exacerbation Diet: Regular Activity: as tolerated Follow-up with PCP next week Medications: Albuterol inhaler 2 puffs every 4-6 hours as needed for shortness of breath Duoneb nebulizer treatment every 4 hours as needed for shortness of breath Pulmicort nebulizer use twice a day Spiriva 1 cap daily Keflex 500 mg twice a day x 4 days, start tomorrow Azithromycin 500 mg daily x 2 days, start tomorrow Prednisone 20 mg daily x 2 days, start tomorrow Instructions: How to Stop Smoking (DC), Cigarette Smoking and Your Health (GEN), Chronic Lung Disease and Infection Prevention (DC), Energy Conservation Techniques (DC) Patient Disposition: HOME SELF-CARE Prescriptions: New ipratropium-albuterol 0.5 mg-3 mg(2.5 mg base)/3 mL Solution For Nebulization 3 ml NEB RTQ4H PRN (Reason: Shortness Of Breath Or Wheezing) Qty: 100 0RF tiotropium bromide [Spiriva with HandiHaler] 18 mcg Capsule, W/Inhalation Device 1 cap inhalation DAILY Qty: 30 0RF budesonide 1 mg/2 mL Suspension For Nebulization 1 mg NEB RTBID Qty: 100 0RF albuterol sulfate 90 mcg/actuation aerosol powdr breath activated 2 inh inhalation Q4-6H PRN (Reason: shortness of breath or wheezing) Qty: 1 0RF cephalexin 500 mg capsule 500 mg PO BID Qty: 8 0RF azithromycin 500 mg tablet 500 mg PO DAILY Qty: 3 0RF prednisone 20 mg tablet 20 mg PO DAILY Qty: 2 0RF Discontinued albuterol 90 mcg/actuation aerosol 90 mcg inhalation DAILY PRN (Reason: wheezing) Did you review [place] 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
[2023-12-30] MEDS: ZITHROMAX PO ONE (11:00)
[2023-12-30] MEDS: MOTRIN PO STA (11:13)
== END 2023-12-30 11:55 | disposition home or self-care (01) ==
LOC: ED 12:11 → MEDSURG B 12:11
PROVIDERS: ADMIT Hospitalist; ATTEND Nurse Practitioner Family
DX: J44.1 Chronic obstructive pulmonary disease with (acute) exacerbation; R59.9 Enlarged lymph nodes, unspecified; Z20.822 Contact with and (suspected) exposure to COVID-19; J96.01 Acute respiratory failure with hypoxia; F17.210 Nicotine dependence, cigarettes, uncomplicated